=== PATIENT | male | born 1980 | race Caucasian/White ===

== ENCOUNTER 2019-06-08 09:13 | Emergency (ER) | payer OTHER ==
[~2019-06-08] VITALS: Ht 182.9 cm; Wt 72.6 kg
[2019-06-08] MEDS ORDERED: ROBAXIN 750 MG750 MG PO (09:49)
[2019-06-08] MEDS ORDERED: NAPROSYN500 MG PO (09:49)
[2019-06-08 10:12] VITALS: BP 135/79
== END 2019-06-08 10:12 ==
LOC: ER 09:13
DX: S01.81XA Laceration without foreign body of other part of head, initial encounter (principal); S50.11XA Contusion of right forearm, initial encounter; V89.2XXA Person injured in unspecified motor-vehicle accident, traffic, initial encounter; Y92.89 Other specified places as the place of occurrence of the external cause; Y93.89 Activity, other specified; Y99.8 Other external cause status